=== PATIENT | male | born 1945 | race Two or more races ===

== ENCOUNTER 2017-06-26 10:29 | Day surgery (SDC) | payer OTHER ==
[2017-06-26] MEDS ORDERED: LIDOCAINE 1% 300 MG/30 ML SDV SC ONE ×2 (10:36→12:22)
--- NOTE | 2017-06-26 12:21 | PDHPUP ---
History & Physical Update H&P update statement: This history and physical update is based on an assessment of the patient which was completed after admission or registration (within 24 hours), but prior to the surgery/procedure. H&P update: H&P reviewed & patient examined, no change in patient's condition since H&P completed
--- NOTE | 2017-06-27 12:33 | EPPROC ---
Electrophysiology Procedure Note: Procedure: LINQ implant Procedure: Parts were prepared and draped. LA given. Incision was placed. Using usual technique, LINQ was injected. Hemostasis was achieved. Michell were placed. Dry sterile dressing was placed. Patient left the CVC in stable condition. Conclusion: Successful LINQ implant.
== END 2017-06-26 13:27 | disposition home or self-care (01) ==
LOC: FCATH 10:29
PROVIDERS: ATTEND Internal Medicine Cardiovascular Disease
PROC: 0JH602Z Insertion of Monitoring Device into Chest Subcutaneous Tissue and Fascia, Open Approach (ICD-10-PCS; principal; 2017-06-26)
DX: R55 Syncope and collapse (principal); I44.1 Atrioventricular block, second degree; Z85.038 Personal history of other malignant neoplasm of large intestine; Z85.828 Personal history of other malignant neoplasm of skin
CPT/HCPCS: C1764

== ENCOUNTER 2017-09-12 06:54 | Observation (INO) | payer OTHER ==
[2017-09-12] MEDS ORDERED: NS 1,000 ML IV ONE (06:58)
[2017-09-12] MEDS ORDERED: DIAZEPAM 5 MG TAB PO ONE (06:58)
[2017-09-12] MEDS ORDERED: diphenhydrAMINE 25 MG CAP PO ONE ×2 (06:58→07:39)
[2017-09-12] MEDS ORDERED: ASPIRIN EC 325 MG TAB PO ONE ×2 (06:58→07:40)
[2017-09-12] MEDS ORDERED: ceFAZolin 2 GM/SWFI 2 GM/20 ML SYR IVP ONE (06:58)
[2017-09-12] MEDS ORDERED: BACITRACIN IRRIGATION/NS 50,000 UNITS/1,000 ML BTL IRR ONE (06:58)
[2017-09-12] MEDS ORDERED: FAMOTIDINE 20 MG TAB PO ONE (06:58)
--- NOTE | 2017-09-12 07:28 | CPEKG ---
Heart Rate: 48 RR Interval: 1250 P-R Interval: 184 QRSD Interval: 84 QT Interval: 432 QTC Interval: 386 P [place]: 27 QRS [place]: 35 T Wave [place]: 47 EKG Severity - OTHERWISE NORMAL ECG - EKG Impression: SINUS BRADYCARDIA Electronically Signed By: Edouard Miller 12-Sep-2017 18:36:08
[2017-09-12] MEDS ORDERED: FAMOTIDINE 20 MG TAB ONE (07:39)
[2017-09-12] MEDS ORDERED: DIAZEPAM 5 MG TAB ONE (07:40)
[2017-09-12 07:46] LABS: % IMMATURE GRANULYOCYTES 0.2 % (0.0-1.1); ABSOLUTE IMMATURE GRANULOCYTES 0.01 10^3/uL (0.00-0.10); ADD DIFF? NO; ADD MORPH? NO; ADD SCAN? NO; ATYPICAL LYMPHOCYTE FLAG 10 (0-99); FRAGMENT RBC FLAG 0 (0-99); HEMATOCRIT 42.5 % (40.0-51.0); HEMOGLOBIN 14.6 g/dL (13.7-17.5); LEFT SHIFT FLG 0 (0-99); LIPEMIA HEMOLYSIS FLAG 90 (0-99); MEAN CELL HEMOGLOBIN 32.2 pg (27.9-34.1); MEAN CELL HEMOGLOBIN CONCENTR. 34.4 g/dL (32.4-36.7); MEAN CELL VOLUME 93.6 fL (81.5-99.8); MEAN PLATELET VOLUME 8.7 fL (8.7-11.7); PLATELET CLUMPS FLAG 0 (0-99); PLATELET COUNT 233 10^3/uL (150-400); RED BLOOD CELL COUNT 4.54 10^6/uL (4.40-6.38); RED CELL DISTRIBUTION WIDTH 14.2 % (11.5-15.2)
[2017-09-12 07:57] LABS: INR 1.02 (0.83-1.16); PROTIME(PATIENT) 13.3 SEC (12.0-15.0)
[2017-09-12 08:04] LABS: ANION GAP 11 mEq/L (8-16); CALCIUM 9.5 mg/dL (8.5-10.4); CARBON DIOXIDE 25 mEq/l (22-31); CHLORIDE 106 mEq/L (97-110); CHOLESTEROL 146 mg/dL (140-220); CHOLESTEROL/HDL RATIO 2.86 RATIO (1.00-4.97); GLOMERULAR FILTRATION RATE > 60; GLUCOSE 88 mg/dL (70-100); HIGH DENSITY LIPOPROTEIN 51 mg/dL (40-65); LDL/HDL RATIO 1.29 RATIO (1.00-3.64); LOW DENSITY LIPOPROTEIN 66 mg/dL (80-100); MAGNESIUM 1.7 mg/dL (1.6-2.3); NON-HIGH DENSITY LIPOPROTEIN 95 mg/dL (90-129); POTASSIUM 4.5 mEq/L (3.5-5.2); SODIUM 142 mEq/L (134-144); TRIGLYCERIDE 145 mg/dL (40-150); VERY LOW DENSITY LIPOPROTEINS 29 mg/dL (8-25)
[2017-09-12] MEDS ORDERED: LIDOCAINE 1% 300 MG/30 ML SDV ONE ×2 (08:04→08:08)
[2017-09-12] MEDS ORDERED: IOPAMIDOL (ISOVUE-300) 100 ML BTL ONE (08:05)
[2017-09-12] MEDS ORDERED: fentaNYL 100 MCG/2 ML INJ ONE (08:05)
[2017-09-12] MEDS ORDERED: MIDAZOLAM 2 MG/2 ML VIAL ONE ×2 (08:05→10:35)
[2017-09-12] MEDS ORDERED: LIDO/EPI 1% **for epidural** 30 ML SDV ONE (08:08)
[2017-09-12] MEDS ORDERED: BUPIVACAINE 0.5% 30 ML SDV ONE (08:08)
--- NOTE | 2017-09-12 08:22 | PDPROPOC ---
Sedation Plan of Care Sedation Plan of Care: vital signs stable, mental status noted, patient educated of risks, benefits, alternatives, patient can tolerate sedation ASA Classification: ASA 3 Planned drugs: fentanyl, midazolam Mallampati Score: Class 3 Mallampati Reference Image: Patient passed 3-3-2 rule?: Yes
--- NOTE | 2017-09-12 11:58 | CPEKG ---
Heart Rate: 60 RR Interval: 1000 P-R Interval: 228 QRSD Interval: 86 QT Interval: 400 QTC Interval: 400 QRS [place]: 40 T Wave [place]: 44 EKG Severity - ABNORMAL ECG - EKG Impression: ATRIAL-PACED RHYTHM Electronically Signed By: Edouard Miller 12-Sep-2017 18:35:53
--- NOTE | 2017-09-12 12:49 | EPPROC ---
Electrophysiology Procedure Note: PROCEDURE PERFORMED: Implantation of an A/V Pacemaker Fluoroscopy INDICATION: This is a 72 yr old male with episodes of syncope who was found to have paroxysmal AV block on LINQ monitor. hence it was decided to implant a dual chamber pacemaker. PROCEDURE NOTE: Patient presented to the cardiac catherization laboratory in a fasting, post absorptive state. Cardiac laborer drying department nurse administered moderate sedation. The left infraclavicular area was prepped and draped in the usual sterile fashion. Lidocaine plus bupivacaine was used for local anesthesia. Left subclavian venography was performed by injection of iodinated contrast into the left antecubital vein. This was done to assure patency of the vein and also to assess for any anatomical aberrations. Using a combination of blunt and sharp dissection and electrocautery, the dissection was carried down to the prepectoral fascia. All bleeding was controlled with electrocautery. Fluoroscopy was utilized during the entire procedure for venous access and placement of the leads. Using the usual technique, left cephalic vein was accessed and a glidewire was placed. Through this initially a 9F and later a 7F sheath was passed. Placement of the guidewires into the venous system was confirmed by low- pressure blood return and also by visualizing the guidewires advancing into the inferior vena cava. A purse string suture was applied around the guidewires. An active fixation ventricular lead was advanced into the right ventricular apex and screwed in place. An active fixation atrial lead was advanced into the right atrial appendage and screwed in place. The peel away sheaths were removed. Pacing thresholds, sensing parameters and lead impedances were measured. There was no diaphragmatic stimulation at maximum output. The leads were sutured to the prepectoral fascia with 3 nonabsorbable sutures each. The pocket was created and it was flushed using antibiotic solution. It was inspected for any bleeding. The leads were attached to the pacemaker securely. The pacemaker was inserted into the pocket and secured in place with a nonabsorbable suture. Fluoroscopy was performed in ULLOA and ISH planes to verify right-sided placement of the leads. Also fluoroscopy of the pacemaker pocket was performed. The pacemaker pocket was closed in 3 layers with absorbable vicryl sutures. Steristrips were placed. Appropriate dressing was applied. The patient left the cardiac catheterization laboratory in stable condition. Serial Numbers: Device: [id number] Edora 8 DR HOGAN [id number] Atrial Lead: Biotronik Solia S 45 SN [id number] Ventricular Lead: Biotronik SOlia S53 SN [id number] Stimulation Thresholds & Impedance Measurements: Atrial Lead 1.5mV, 1.4@0.4ms, 448Ohms Ventricular Lead 8mV, 0.6@0.4ms, 682Ohms Huber Pacing Parameters Pacing mode: DDD Lower rate: 60 Upper tracking rate: 120 Upper sensor rate: 120
--- NOTE | 2017-09-12 12:51 | EPPROC ---
Electrophysiology Procedure Note: Procedure: LINQ removal Indication: Pt has pacemaker implanted and hence the utility of LINQ is complete Procedure: parts prepared and draped. LA given. incision placed. SUbcutaneous tissue dissected. LINQ explanted. [place] placed. Dry sterile dressing placed. Conclusion: Successful LINQ explant.
--- NOTE | 2017-09-12 12:53 | PDDXCAT ---
Diagnostic Cath Note - . Date: 09/12/17 Travel Trailer Components Assembler: Matthias Cigarette Paper Tester: Other Indication: High-risk criteria on noninvasive testing (choose option below) High-risk criteria on non-invasive testing: stress-induced moderate-size multiple perfusion defects - Procedure Access: right groin Procedure: left heart catheterization, coronary angiography - Materials Left Heart Cath size: 4F Left Heart Cath materials: JL4.0, JR4.0, Emerson's R Right Heart Cath size: 5F - Findings-Left Heart Catheterization LM: Short and divides into LAD and LCx LAD: Luminal irregularities without significant stenosis. LCX: Large size. Gives rise to PDA. Luminal irregularities. No hemodynamically significant stenosis. RCA: Non-dominant. Luminal irregularities. No significant stenosis Complications: None Estimated blood loss: <50ml Assessment: No hemodynamically significant CAD Plan: Medical management
[2017-09-12] MEDS: OXYCODONE/APAP 5/325 TAB PO PRN ×3 (17:23→22:41)
[2017-09-13 05:17] LABS: % IMMATURE GRANULYOCYTES 0.5 % (0.0-1.1); ABSOLUTE IMMATURE GRANULOCYTES 0.03 10^3/uL (0.00-0.10); ADD DIFF? NO; ADD MORPH? NO; ADD SCAN? NO; ATYPICAL LYMPHOCYTE FLAG 0 (0-99); FRAGMENT RBC FLAG 0 (0-99); HEMATOCRIT 41.4 % (40.0-51.0); LEFT SHIFT FLG 0 (0-99); LIPEMIA HEMOLYSIS FLAG 90 (0-99); MEAN CELL HEMOGLOBIN 32.4 pg (27.9-34.1); MEAN CELL HEMOGLOBIN CONCENTR. 33.8 g/dL (32.4-36.7); MEAN CELL VOLUME 95.8 fL (81.5-99.8); MEAN PLATELET VOLUME 8.9 fL (8.7-11.7); PLATELET CLUMPS FLAG 0 (0-99); PLATELET COUNT 216 10^3/uL (150-400); RED BLOOD CELL COUNT 4.32 10^6/uL (4.40-6.38); RED CELL DISTRIBUTION WIDTH 14.3 % (11.5-15.2)
[2017-09-13 05:31] LABS: ANION GAP 7 mEq/L (8-16); CALCIUM 8.9 mg/dL (8.5-10.4); CARBON DIOXIDE 32 mEq/l (22-31); CHLORIDE 101 mEq/L (97-110); CREATININE 1.1 mg/dL (0.7-1.3); GLOMERULAR FILTRATION RATE > 60; GLUCOSE 80 mg/dL (70-100); POTASSIUM 5.4 mEq/L (3.5-5.2); SODIUM 140 mEq/L (134-144)
--- NOTE | 2017-09-13 08:54 | CPEKG ---
Heart Rate: 66 RR Interval: 909 P-R Interval: 180 QRSD Interval: 82 QT Interval: 368 QTC Interval: 386 P [place]: 31 QRS [place]: 24 T Wave [place]: 38 EKG Severity - ABNORMAL ECG - EKG Impression: ATRIAL-PACED COMPLEXES Electronically Signed By: Edouard Miller 13-Sep-2017 12:05:58
[2017-09-13] MEDS ORDERED: Herbals/Supplements -Info Only PO SCH (09:00)
[2017-09-13] MEDS ORDERED: CHOLECALCIFEROL VIT D3 2,000 UNITS TAB/CAP PO SCH (09:00)
--- NOTE | 2017-09-13 11:29 | ASMTCASEMG ---
Living Arrangements What is your living Answers: With Spouse arrangement? Who do you live with? Type Of Residence What kind of residence do Answers: House you live in? Discharge Plan Comments Coordination Status Comments Notes: Pt is a 72 y/o man admitted for a heart cath and a pacemaker. Anticipates that pt will d/c independent with supportive when medically stable. No therapies ordered at this time. CM available for d/c needs. Date Signed: 09/13/2017 11:28 AM Electronically Signed By:ELADIO Miller
[2017-09-13 13:30] VITALS: BP 140/82; PULSE 74; RESP 17; TEMP 98.1; O2SAT 91
--- NOTE | 2017-09-13 16:09 | ASDISCHSUM ---
Discharge Information Plan Status:Home with No Needs Medically Cleared to Leave:09/12/2017 Discharge Date:09/13/2017 03:18 PM CM D/C Disposition: ADT D/C Disposition:Home, Routine, Self-Care Projected Discharge Date:09/13/2017 12:00 AM Transportation at D/C: Discharge Delay Reason: Follow-Up Date:09/13/2017 12:00 AM Discharge Slot: Final Diagnosis: Placement Information Patient Contact Information Contact Name:UNIQUE Relationship: Address: City: [facility] Phone: [facility] Code: Email: Financial Information Financial Class:Medicare Advantage Plans Primary Plan Desc:[facility] ADVANTAGE PLANS Primary Plan Number:[id number] Secondary Plan Desc: Secondary Plan Number: Assessment Information [facility] Initial CM Assessment Living Arrangements What is your living Answers: With Spouse arrangement? Who do you live with? Type Of Residence What kind of residence do Answers: House you live in? Discharge Plan Comments Coordination Status Comments Notes: Pt is a 72 y/o man admitted for a heart cath and a pacemaker. Anticipates that pt will d/c independent with supportive when medically stable. No therapies ordered at this time. CM available for d/c needs. Date Signed: 09/13/2017 11:28 AM Electronically Signed By:ELADIO Miller Intervention Information Intervention Type:*ANAIS-Signed Date of Service:09/13/2017 09:38 AM Patient Type:Observation Staff Member:Martina Sharma Hours: Discipline: Severity: Comment:
--- NOTE | 2017-09-13 20:39 | GDS ---
[f rep st] DISCHARGE SUMMARY DISCHARGE DIAGNOSES: 1. Syncope, status post LINQ placement. 2. Second-degree heart block with pauses noted. 3. Abnormal nuclear stress test, status post cardiac catheterization in this admission. 4. Squamous cell cancer of the tongue. 5. Osteoporosis with several compression fractures. PROCEDURES: 1. 09/12/2017: Left heart catheterization. This showed a short left main, which divides into the L AD and circumflex. The LAD has luminal irregularities without significant stenosis. The circumflex is large, giving rise to PDA. RCA is nondominant with luminal irregularities. 2. 09/12/2017: LINQ removal. 3. 09/12/2017: Permanent place maker implantation with a Biotronik Edora dual-chamber device. 4. Chest x-ray post pacer that shows a right upper lobe density. 5. 09/13/2017: Chest CT, which showed no pulmonary masses. Elevated hemidiaphragm, possibly paraly zed. Multiple thoracic vertebral compression fractures, 2 of which have been treated with vertebral augmentation. Osteoporosis. BRIEF HISTORY: Please see dictated H and P from Dr. Nitesh Rizzo for complete details. In brief, th e patient is a 72-year-old male, who was referred for syncope. On his LINQ monitoring, he was found to have intermittent second-degree AV block. HOSPITAL COURSE BY PROBLEM: 1. Second degree AV block and pauses noted. He is status post dual-chamber permanent pacemaker. He is advised on arm precautions. He has a wound and device clinic followup. 2. Right upper lobe density seen on chest x-ray. On day of discharge, the followup noncontrast CT d id not show any pulmonary masses. 3. Osteoporosis with compression fractures. He is advised to follow up with his PCP to discuss furt her treatment for this. PHYSICAL EXAM: VITAL SIGNS: On day of discharge, blood pressure 140/82, heart rate 74, respirations 17, O2 saturation 91% on room air, temp of 98.1 degrees Fahrenheit. GENERAL: He is a very pleasant male in no apparent distress. EYES: PERRL. HEART: Regular rate and rhythm. Left pectoral incisi on site without ecchymosis or hematoma present, nontender on palpation. LABORATORY DATA: CBC with WBC 6.5, hemoglobin 14, hematocrit 41.4, platelet count of 216. BMP with sodium 140, potassium 5.4, chloride 101, CO2 32, BUN 19, creatinine 1.1, glucose of 80. Telemetry shows a paced rhythm. RESULTS PENDING: None. DIET: Per previous. ACTIVITY: Arm precautions were reviewed. DISCHARGE MEDICATIONS: Please see med reconciliation. He may continue his Fosamax, vitamin D. DISCHARGE INSTRUCTIONS: 1. Arm precautions as reviewed. 2. Follow up in the device clinic as scheduled. 3. Follow up with Dr. Rizzo as scheduled. /[id number]/MODL
[2017-09-18] MEDS ORDERED: ALENDRONATE SODIUM 70 MG TAB PO SCH (07:00)
== END 2017-09-13 15:18 | disposition home or self-care (01) ==
LOC: FCATH 06:54 → F2W 11:24
PROVIDERS: ADMIT Internal Medicine Cardiovascular Disease; ATTEND Internal Medicine Cardiovascular Disease
DX: I44.1 Atrioventricular block, second degree (principal); R91.1 Solitary pulmonary nodule; M81.0 Age-related osteoporosis without current pathological fracture
CPT/HCPCS: 33208; 33284; 71020; 71250; 93005; 93454; C1760; C1769; C1785; C1898; G0378; J0690; J1644; J2250; J3010; Q9967